=== PATIENT | female | born 1985 | race Asian ===

== ENCOUNTER 2020-12-27 04:40 | Inpatient (IN) | payer BC ==
[2020-12-27] MEDS ORDERED: DEXTROSE 5%-LACTATED RINGERS 1,000 ML IV SCH (04:45)
[2020-12-27] MEDS: OXYTOCIN 20 UNITS in 0.9% NS 20 UNIT/1,000 ML INFUS.BAG IV SCH ×2 (05:45→08:24)
[2020-12-27 06:21] VITALS: BMI 30.5
[2020-12-27] MEDS ORDERED: IBUPROFEN 600 MG TABLET (FP) PO PRN (06:23)
[2020-12-27] MEDS ORDERED: BISACODYL 10 MG SUPP.RECT RC PRN (06:23)
[2020-12-27] MEDS ORDERED: BENZOCAINE 28 GM HEMORRHOIDAL OINTMENT TP PRN (06:23)
[2020-12-27] MEDS ORDERED: BENZOCAINE 20% 57 GM BOTTLE TP PRN (06:23)
[2020-12-27] MEDS ORDERED: ACETAMINOPHEN 325 MG TABLET (FP) PO PRN (06:23)
[2020-12-27] MEDS ORDERED: METHYLERGONOVINE MALEATE 0.2 MG/1 ML AMP IM PRN (06:23)
[2020-12-27] MEDS ORDERED: WITCH HAZEL 50% (TUCKS) 40 PAD/JAR PAD TP PRN (06:23)
[2020-12-27] MEDS ORDERED: OXYTOCIN 20 UNITS in 0.9% NS 20 UNIT/1,000 ML INFUS.BAG IV ONE ×2 (06:54→08:10)
[2020-12-27 07:06] LABS: BASO % 0.3 % (0-2.0); EOS % 0.1 % (0-4.5); HEMATOCRIT 24.4 % (32.4-45.2); HEMOGLOBIN 8.2 GM/dL (10.7-15.3); LYMPH % 6.8 % (8-40); MCH 27.2 pg (25.7-33.7); MCHC 33.5 g/dl (32.0-36.0); MEAN CELL VOLUME 81.2 fl (80-96); MONO % 5.4 % (3.8-10.2); NEUT % 87.4 % (42.8-82.8); PLATELET COUNT 122 10^3/uL (134-434); RBC 3.01 M/mm3 (3.60-5.2); WHITE BLOOD COUNT 11.2 K/mm3 (4.0-10.0)
[2020-12-27 07:24] LABS: CHLORIDE 117 mmol/L (98-107); SODIUM 143 mmol/L (136-145)
[2020-12-27 07:26] LABS: ALBUMIN 1.7 g/dl (3.4-5.0); ANION GAP 7 MMOL/L (8-16); BLOOD UREA NITROGEN 7.1 mg/dL (7-18); CO2 19 mmol/L (21-32)
[2020-12-27 07:27] LABS: GLUCOSE,RANDOM 129 mg/dL (74-106)
[2020-12-27 07:30] LABS: CREATININE 0.4 mg/dL (0.55-1.3); SGOT/AST 14 U/L (15-37); SGPT/ALT 11 U/L (13-61)
[2020-12-27 07:31] LABS: BILIRUBIN,TOTAL 0.2 mg/dL (0.2-1); TOT PROT 4.3 g/dl (6.4-8.2)
[2020-12-27 07:32] LABS: ALK PHOS 50 U/L (45-117)
[2020-12-27 07:33] LABS: CALCIUM 6.1 mg/dL (8.5-10.1); INR 0.93 (0.83-1.09); PROTHROMBIN TIME (PATIENT) 10.9 SEC (9.7-13.0)
[2020-12-27 07:36] LABS: ACTIVATED PTT 24.2 SECONDS (25.2-36.5)
[2020-12-27 09:46] LABS: BLOOD UREA NITROGEN 6.7 mg/dL (7-18)
[2020-12-27 09:50] LABS: CREATININE 0.5 mg/dL (0.55-1.3)
[2020-12-27 09:51] LABS: BILIRUBIN,TOTAL 0.6 mg/dL (0.2-1); TOT PROT 5.2 g/dl (6.4-8.2)
[2020-12-27 10:08] LABS: ALBUMIN 2.2 g/dl (3.4-5.0); CALCIUM 7.7 mg/dL (8.5-10.1)
[2020-12-27] MEDS: PRENATAL VITAMINS W/ FOLIC ACID TABLET (FP) PO SCH (10:14)
[2020-12-27 11:55] LABS: HEPATITIS B SURFACE AG MATERN NON-REACTIVE (NONREACTIVE); SYPHILIS W/ RPR CONF NON-REACTIVE (NONREACTIVE)
[2020-12-27 12:51] LABS: HIV INTERPRETATION NEGATIVE (NEGATIVE)
[2020-12-28 06:36] LABS: BASO % 0.5 % (0-2.0); EOS % 0.4 % (0-4.5); HEMATOCRIT 25.4 % (32.4-45.2); HEMOGLOBIN 8.8 GM/dL (10.7-15.3); LYMPH % 21.4 % (8-40); MCH 27.7 pg (25.7-33.7); MCHC 34.6 g/dl (32.0-36.0); MEAN CELL VOLUME 80.3 fl (80-96); MEAN PLT VOLUME 8.2 fl (7.5-11.1); MONO % 4.9 % (3.8-10.2); NEUT % 72.8 % (42.8-82.8); PLATELET COUNT 162 10^3/uL (134-434); RBC 3.16 M/mm3 (3.60-5.2); RDW 14.4 % (11.6-15.6); WHITE BLOOD COUNT 10.6 K/mm3 (4.0-10.0)
[2020-12-28] MEDS: PRENATAL VITAMINS W/ FOLIC ACID TABLET (FP) PO SCH (09:58)
[2020-12-28] MEDS ORDERED: SENNOSIDES/DOCUSATE COMBO (SENNA PLUS) TABLET (UD) PO PRN ×2 (20:00→22:00)
[2020-12-29 10:03] VITALS: BP 104/64; PULSE 95; TEMP 98.1
[2020-12-29] MEDS: PRENATAL VITAMINS W/ FOLIC ACID TABLET (FP) PO SCH (10:50)
== END 2020-12-29 18:05 | disposition home or self-care (01) | DRG 807 ==
LOC: JLDR 04:40 → J3W 08:30
PROVIDERS: ADMIT Obstetrics & Gynecology; ATTEND Obstetrics & Gynecology
PROC: 10E0XZZ Delivery of Products of Conception, External Approach (ICD-10-PCS; principal; 2020-12-27)
PROC: 0KQM0ZZ Repair Perineum Muscle, Open Approach (ICD-10-PCS; 2020-12-27)
DX: O70.1 Second degree perineal laceration during delivery (principal); Z37.0 Single live birth; O99.02 Anemia complicating childbirth; D64.9 Anemia, unspecified; Z3A.37 37 weeks gestation of pregnancy
CPT/HCPCS: 36415; 59409; 80053; 85025; 85610; 85730; 86762; 86780; 86850; 86900; 86901; 87340; 87389; C9803; U0003; U0005

== ENCOUNTER 2021-04-02 03:44 | Inpatient (IN) | payer BC ==
[2021-04-02] MEDS ORDERED: ONDANSETRON 4 MG/2 ML VIAL IVPUSH ONE (04:02)
[2021-04-02] MEDS ORDERED: LACTATED RINGERS SOLUTION 1000 ML INFUS.BAG IV ONE (04:02)
[2021-04-02] MEDS ORDERED: ACETAMINOPHEN INJECTION 100 ML IVPB ONE (04:11)
[2021-04-02] MEDS ORDERED: ONDANSETRON 4 MG/2 ML VIAL ONE (04:11)
[2021-04-02] MEDS ORDERED: METOCLOPRAMIDE HCL INJECTION 10 MG/2 ML VIAL IVPUSH ONE (04:12)
[2021-04-02] MEDS ORDERED: ACETAMINOPHEN 500 MG TABLET (FP) PO ONE (04:12)
[2021-04-02] MEDS ORDERED: METOCLOPRAMIDE HCL INJECTION 10 MG/2 ML VIAL ONE (04:16)
[2021-04-02 04:19] LABS: BASO % 0.4 % (0-2.0); EOS % 0.1 % (0-4.5); HEMATOCRIT 39.5 % (32.4-45.2); HEMOGLOBIN 13.1 GM/dL (10.7-15.3); LYMPH % 11.5 % (8-40); MCH 25.1 pg (25.7-33.7); MEAN CELL VOLUME 75.9 fl (80-96); MEAN PLT VOLUME 7.5 fl (7.5-11.1); MONO % 4.5 % (3.8-10.2); NEUT % 83.5 % (42.8-82.8); PLATELET COUNT 242 10^3/uL (134-434); RBC 5.21 M/mm3 (3.60-5.2); RDW 14.6 % (11.6-15.6); WHITE BLOOD COUNT 9.4 K/mm3 (4.0-10.0)
[2021-04-02 04:40] LABS: CALCIUM 8.9 mg/dL (8.5-10.1)
[2021-04-02 04:41] LABS: ALBUMIN 3.9 g/dl (3.4-5.0); BLOOD UREA NITROGEN 6.9 mg/dL (7-18); MAGNESIUM 1.4 mg/dL (1.8-2.4)
[2021-04-02] MEDS ORDERED: SODIUM CHLORIDE 0.9% 500 ML INFUS.BAG IV ONE (04:43)
[2021-04-02 04:44] LABS: CREATININE 0.8 mg/dL (0.55-1.3); PHOSPHOROUS 2.1 mg/dL (2.5-4.9)
[2021-04-02 04:45] LABS: BILIRUBIN,TOTAL 0.3 mg/dL (0.2-1); TOT PROT 7.4 g/dl (6.4-8.2)
[2021-04-02] MEDS ORDERED: MAGNESIUM SULF 50% (8.12 MEQ/2 ML-1 GM VIAL) IVPB ONE (04:56)
[2021-04-02] MEDS ORDERED: MAGNESIUM SULFATE IN WATER 2 GM/50 ML IVPB IVPB ONE (05:03)
[2021-04-02 05:17] LABS: EPI CELLS 9 /uL (0-25.1); HYALINE CASTS 0 /uL (0-3.1); URINE APPEARANCE CLEAR; URINE BACTERIA 14 /uL (0-1359); URINE BILIRUBIN NEGATIVE (NEGATIVE); URINE COLOR YELLOW; URINE GLUCOSE (UA) NEGATIVE (NEGATIVE); URINE KETONE NEGATIVE (NEGATIVE); URINE LEUK ESTERASE TRACE (NEGATIVE); URINE NITRITE NEGATIVE (NEGATIVE); URINE PROTEIN NEGATIVE (NEGATIVE); URINE RBC 1 /uL (0-23.9); URINE UROBILINOGEN 0.2 mg/dL (0.2-1.0); URINE WBC 11 /uL (0-25.8)
[2021-04-02] MEDS ORDERED: POTASSIUM PHOSPHATE 30 MM in SODIUM CHLORIDE 500 ML IVPB ONE (05:29)
[2021-04-02] MEDS ORDERED: SENNOSIDES 8.6MG TABLET (FP) PO PRN (06:17)
[2021-04-02] MEDS ORDERED: DOCUSATE SODIUM 100 MG CAPSULE (FP) PO PRN (06:17)
[2021-04-02] MEDS ORDERED: SODIUM CHLORIDE 1,000 ML IV SCH (06:30)
[2021-04-02 08:16] LABS: BASO % 0.3 % (0-2.0); HEMATOCRIT 40.5 % (32.4-45.2); HEMOGLOBIN 13.3 GM/dL (10.7-15.3); MCHC 32.7 g/dl (32.0-36.0); MEAN CELL VOLUME 76.6 fl (80-96); MONO % 2.7 % (3.8-10.2); PLATELET COUNT 254 10^3/uL (134-434); RBC 5.29 M/mm3 (3.60-5.2); RDW 14.8 % (11.6-15.6); WHITE BLOOD COUNT 8.2 K/mm3 (4.0-10.0)
[2021-04-02 08:39] LABS: CALCIUM 9.2 mg/dL (8.5-10.1)
[2021-04-02 08:40] LABS: ALBUMIN 3.9 g/dl (3.4-5.0); BLOOD UREA NITROGEN 5.6 mg/dL (7-18); MAGNESIUM 2.6 mg/dL (1.8-2.4)
[2021-04-02 08:42] LABS: CREATININE 0.6 mg/dL (0.55-1.3); PHOSPHOROUS 4.5 mg/dL (2.5-4.9)
[2021-04-02 08:44] LABS: BILIRUBIN,TOTAL 0.2 mg/dL (0.2-1); TOT PROT 7.4 g/dl (6.4-8.2)
[2021-04-02] MEDS ORDERED: ENOXAPARIN NA (PORCINE) 40 MG/0.4 ML DISP.SYRIN SQ SCH (10:00)
[2021-04-02 10:41] VITALS: BP 125/73; PULSE 76; TEMP 98.9
[2021-04-02] MEDS ORDERED: DEXTROSE 5%-WATER - 1,000 ML IV SCH (10:45)
[2021-04-02 13:25] LABS: BLOOD UREA NITROGEN 5.4 mg/dL (7-18); CALCIUM 8.7 mg/dL (8.5-10.1)
[2021-04-02 13:29] LABS: CREATININE 0.6 mg/dL (0.55-1.3)
[2021-04-02 14:27] VITALS: BMI 26.4
== END 2021-04-02 14:20 | disposition home or self-care (01) | DRG 641 ==
LOC: JER 03:44 → JERBED 05:00 → J7W 10:16
PROVIDERS: ADMIT Hospitalist; ATTEND Internal Medicine
DX: E87.1 Hypo-osmolality and hyponatremia (principal); E87.8 Other disorders of electrolyte and fluid balance, not elsewhere classified; E83.42 Hypomagnesemia; E83.39 Other disorders of phosphorus metabolism
CPT/HCPCS: 36415; 71045-TC-FY; 80048; 80053; 81003; 82436; 82550; 82553; 82607; 82746; 82962; 83735; 83930; 83935; 84100; 84133; 84300; 84436; 84443; 84703; 85025; 87077; 87086; 93005; 93010; 99285-25; C9803-CS; G0378; U0003; U0005